=== PATIENT | female | born 1980 | race American Indian/Alaskan Native ===

== ENCOUNTER 2016-07-01 09:20 | Emergency (ER) | payer BC, MEDICAID ==
[2016-07-01] MEDS ORDERED: Sodium Chloride 0.9% 1,000 ML IV ONE (09:38)
[2016-07-01] MEDS ORDERED: Sodium Chloride 0.9% 1,000 ML ONE (09:52)
[2016-07-01 10:01] LABS: BASO # 0.1 K/uL (0.0-0.2); BASO % 0.9 % (0.0-2.0); EOS # 0.1 K/uL (0.0-0.7); EOS % 0.8 % (0.0-4.0); HEMATOCRIT 31.3 % (34.0-47.0); LYMPH # 1.5 K/uL (1.0-4.3); LYMPH % 17.5 % (20.0-40.0); MEAN CELL VOLUME 90.4 fL (81.0-99.0); MEAN CORPUSCULAR HEMOGLOBIN 30.1 pg (27.0-31.0); MEAN CORPUSCULAR HGB CONC 33.3 g/dL (33.0-37.0); MEAN PLATELET VOLUME 9.1 fL (7.2-11.7); MONO % 11.5 % (0.0-10.0); RED CELL DISTRIBUTION WIDTH 14.8 % (11.5-14.5); WHITE BLOOD COUNT 8.4 K/uL (4.8-10.8)
--- NOTE | 2016-07-01 10:01 | C.PDOC ---
History Of Present Illness 35 y/o female with 29 week gestation presents to ED with complaints of syncope episode. Patient states she was dropping off son at school, and "passed out". pt states she was standing when syncopal episode occurred. Patient baseline previously feeling well. Patient denies leakage of fluid, vaginal bleed , headache or dizziness. pt reports "only ate a bowl of cereal this morning" No other complaints at this time. Time Seen by Provider: 07/01/16 09:24 Chief Complaint (Nursing): Syncope History Per: Patient History/Exam Limitations: no limitations Onset/Duration Of Symptoms: Hrs Activity At Onset Of Symptoms: Walking Past Medical History Reviewed: Historical Data, Nursing Documentation, Vital Signs Vital Signs: Last Vital Signs Temp 98.2 F 07/01/16 10:09 Pulse 82 07/01/16 10:09 Resp 18 07/01/16 10:09 BP 113/71 07/01/16 10:09 Pulse Ox 99 07/01/16 10:41 - Medical History PMH: Anemia Family History: States: Unknown Family Hx - Social History Hx Alcohol Use: No Hx Substance Use: No - Immunization History Hx Influenza Vaccination: No Review Of Systems Except As Marked, All Systems Reviewed And Found Negative. Constitutional: Negative for: Fever, Chills, Weakness Respiratory: Negative for: Shortness of Breath Gastrointestinal: Negative for: Nausea, Vomiting, Diarrhea Genitourinary: Negative for: Dysuria, Vaginal Discharge, Vaginal Bleeding Skin: Negative for: Bruising Neurological: Negative for: Headache, Dizziness Physical Exam - Physical Exam Appears: Non-toxic, No Acute Distress Skin: Normal Color, Warm Head: Atraumatic, Normacephalic Oral Mucosa: Moist Cardiovascular: Rhythm Regular Respiratory: Normal Breath Sounds, No Rales, No Rhonchi, No Wheezing Gastrointestinal/Abdominal: Normal Exam Extremity: Normal ROM Neurological/Psych: Oriented x3, Normal Speech, Normal Cognition Gait: Steady ED Course And Treatment - Laboratory Results Result Diagrams: 07/01/16 09:56 07/01/16 09:56 ECG Interpretation: Normal Rate From EC O2 Sat by Pulse Oximetry: 99 (room air ) Medical Decision Making Medical Decision Making: syncopal episode. consider dehydration, metabolic, infectious. pt neuro intact. no guzman. low suspicion for intracranial pathology. pt declines ct/cxr imaging, and is asymptomatic at this time 1019: pt reasssed. no complaints. abd soft. no ttp. neuro intact. case discussed with dr campos. will sent pt for tocographic monitoring. pt smiling in nad. states she feels well to go home. [place] syncope rules neg. Disposition - Disposition Disposition: HOME/ ROUTINE Disposition Time: 10:47 Condition: STABLE Additional Instructions: please follow up with your doctor. return to er with worsening symptoms or concerns. Instructions: Syncope (ED) - Clinical Impression Clinical Impression: Syncope - PA / RANCH SUPERVISOR / Resident Statement MD/DO has reviewed & agrees with the documentation as recorded. MD/DO has examined the patient and agrees with the treatment plan. - Scribe Statement The provider has reviewed the documentation as recorded by the Giseleibalexander Gaspar All medical record entries made by the Ritchie were at my direction and personally dictated by me. I have reviewed the chart and agree that the record accurately reflects my personal performance of the history, physical exam, medical decision making, and the department course for this patient. I have also personally directed, reviewed, and agree with the discharge instructions and disposition.
[2016-07-01 10:08] LABS: CHLORIDE 102 mmol/L (98-107); POTASSIUM 3.7 mmol/L (3.6-5.2); SODIUM 134 mmol/L (132-148)
[2016-07-01 10:10] LABS: BILIRUBIN,TOTAL 0.4 mg/dL (0.2-1.3); GFR AFRICAN-AMERICAN > 60
[2016-07-01 10:11] LABS: ALKALINE PHOSPHATASE 51 U/L (38-126); ALT/SGPT 27 U/L (9-52); AST/SGOT 21 U/L (14-36); BLOOD UREA NITROGEN 5 mg/dL (7-17); CALCIUM 9.1 mg/dl (8.6-10.4); CARBON DIOXIDE 24 mmol/L (22-30); GLUCOSE,RANDOM 90 mg/dL (65-105); TOTAL PROTEIN 6.5 g/dL (6.3-8.3)
[2016-07-01 10:41] LABS: RBC URINE < 1 /hpf (0-3); URINE BACTERIA RARE (<OCC); URINE BILIRUBIN NEGATIVE (NEGATIVE); URINE BLOOD NEGATIVE (NEGATIVE); URINE COLOR Yellow (YELLOW); URINE GLUCOSE (UA) NORMAL (Normal); URINE KETONE NEGATIVE (NEGATIVE); URINE LEUKOCYTE ESTERASE NEG Leu/uL (Negative); URINE PROTEIN NEGATIVE (NEGATIVE); URINE UROBILINOGEN NORMAL mg/dL (0.2-1.0); WBC URINE 1 /hpf (0-5)
[2016-07-01 11:17] VITALS: BP 111/74; PULSE 81; RESP 16; TEMP 97.9; O2SAT 98
--- NOTE | 2016-07-01 11:30 | US ---
OB , limited Indication: Trauma Comparison: None available Technique: Real-time ultrasound was performed through the pelvis. Findings: There is a single living fetus in cephalic presentation. Anterior placenta. The placenta is not previa. There are no adnexal masses or cysts evident. Cervix length measures approximately 4.0 cm. Measurements and calculations: Fetus has a composite sonographic age of 30 weeks 0 days. This calculation is based on the biparietal diameter, head circumference, abdominal circumference, and femur length. Estimated heart rate 158.8 beats per min. Impression: Single living fetus with a composite sonographic age of 30 weeks 0 days. Estimated heart rate 158.8 beats per min. The study was performed for the emergent evaluation of trauma, and the whole anatomic survey of the fetus was not performed. This should be performed on an outpatient elective basis as clinically warranted.
--- NOTE | 2016-07-01 15:26 | OBHP ---
Datetime: 07/01/2016 12:05 Admit Comment, IP Provider: 35 y.o. , LMP 12/10/15, JESSICA 09/17/16, per patient as per Dr. Ramesh casas, EGA 29w 5d for toco monitoring, S/P syncopal episode earlier this morning with negative E.D. eval uation (see separate note in [employer]). Reports while dropping off her son at school this morning whi le speaking with the security lead, "I turned around and hit the floor. When I woke up, I was on the floor and they had called the ambulance". Patient states called her prov OB, Dr. Luan Lugo. Den ies loss of urine or feces. Denies hitting her head; no headches or visual changes. (+) AFM; denies L OF, VB, Ctx. care: Dr. Luan Lugo; no issues to date. Next visit 07/04/16. P Ob: x 3, 1996, male, 38/39 weeks, 6lb 9oz; 2001, female, 32 weeks, 5lb 5oz - in NICU x 2 wee ks; 2008, male, 34 weeks, 5lb 5oz; no NICU stay. All alive and well. VTOP x 2 age 14 and 2003, first trimestre, with D_C; no complications P SOCIAL MEDIA STRATEGIST: 9 x monthly x 7. Denies STI or abnormal Pap PMH: denies PSH: D_C x 2; 2009, Lap band (lost 40 lb) NKDA Meds: PNV Soc Hx: denies tobacco, illicit drug or ETOH use. Lives with her children and current FOB; togethe r x 2 years. Works as medical coordinator pesticide use FamHx: Mother alive 75, HTH, DM. Father 05/31/16 age 84 - cerebral hemorrhage; h/o Alzheim er's. No knonw fam h/o cancer P.E.: as above. WD in NAD. Awake, alert, oriented to time, person and place. Pleasant and cooperat luis. Hungry Assessment: 35 yo [id number], 29w 5d, S/P syncopal with negative work up. deceleration noted as a elizabeth (just after speaking with Dr. Lugo. Laboratory data and ob ultrasound report reviewed by me: no mane for anemia (Hgb 10.5); Ultrasound AGA 30w 0d; normal placenta - no mention made of fluid. Plan 1) continue monitoring for an additional 30 min 2) Anticipate discharge home 3) reveiwed S/S PTL 4) Keep appointment for 07/04/16 - as per and discussed with, Dr. Lugo Addendum: 1315 hours - after eating sandwich and drinking apple juice, patient states feels very good. (+) AFM. - after 45 minutes additional monitoring, no recurrence of deceleration. Plan: 1) discharge home 2) Encouraged to drink half her weight in ounces of water daily 3) Encouraged to keep a small snack; piece of fruit in her purse 4) Keep scheduled appointments - as per Dr. Lugo Pelvic Type - PN: Not Done Extremities - PN: Normal Abdomen - PN: Normal Back - PN: Normal Breast - PN: Not Done Lungs - PN: Normal Heart - PN: Normal Thyroid - PN: Not Done Neurologic - PN: Normal HEENT - PN: Normal General - PN: Normal Comments, ACOG Physical Exam: Skin: warm, dry, intact Abdomen: gravid, soft, non tender Extremities: no calf tenderness All other systems reviewed and are negative. Gestation - Est Wks by US: 29w 5d FHR Category Provider Fetus A: Category I Genitourinary Exam: Normal DTRs - PN: Normal
--- NOTE | 2016-07-21 13:49 | CARD ---
APPROVED REPORT EKG Measurement Heart [id number] <Conclusion> Normal sinus rhythm Normal ECG
== END 2016-07-01 13:25 | disposition home or self-care (01) ==
LOC: C.ER 09:20 → C.EROB 09:20
DX: O26.893 Other specified pregnancy related conditions, third trimester (principal); R55 Syncope and collapse; O76 Abnormality in fetal heart rate and rhythm complicating labor and delivery; Z3A.29 29 weeks gestation of pregnancy
CPT/HCPCS: 76815; 80053; 81001; 82948; 84702; 84703; 85025; 85610; 85730; 86850; 86900; 99285; J7040

== ENCOUNTER 2016-08-26 18:29 | Emergency (ER) | payer BC, MEDICAID ==
[2016-08-26 18:52] VITALS: BMI 34.0
[2016-08-26 19:20] LABS: SQUAMOUS EPITHIAL 10 /hpf (0-5); URINE BACTERIA RARE (<OCC); URINE BILIRUBIN NEGATIVE (NEGATIVE); URINE BLOOD NEGATIVE (NEGATIVE); URINE CLARITY Hazy (Clear); URINE COLOR Yellow (YELLOW); URINE GLUCOSE (UA) NORMAL (Normal); URINE LEUKOCYTE ESTERASE NEG Leu/uL (Negative); URINE NITRATE NEGATIVE (NEGATIVE); URINE PROTEIN 1+ mg/dL (NEGATIVE)
--- NOTE | 2016-08-26 19:36 | OBDCSUM ---
Datetime: 08/26/2016 19:34 Discharged to, Provider: Home Follow up at, Provider: wednesday Follow up in weeks, Provider: dr pickard Discharge Comment, Provider: dc home labor ins given po hyration f/u in on Discharge Diagnosis Prov Other: 37 weks false labor
--- NOTE | 2016-08-26 19:36 | OBHP ---
Datetime: 08/26/2016 19:31 IP Adm Impression: Term, intrauterine ; No Active Labor IP Chief Complaint Other: back pain and increased frequency IP Admit Plan: Discharge home Admit Comment, IP Provider: at 37+weeks came wth c/o back pain and increased frequency from the morning, no ctxs, vb, lof,+fm.no dysuria. obhx 3 x pmh de med pnv all nkda psh de soch den ve ft/50/-3 ua neg a/p at 37=weeks r/o labor, r/o uti dc home labor ins given po hyration f/u in on mondauy Pelvic Type - PN: Adequate Extremities - PN: Normal Abdomen - PN: Normal Back - PN: Normal Breast - PN: Not Done Lungs - PN: Normal Heart - PN: Normal Thyroid - PN: Not Done Neurologic - PN: Normal HEENT - PN: Normal General - PN: Normal FHR - Baseline A Provider: 140 Contraction Comments Provider: irrg Comments, ACOG Physical Exam: gravid,non tender ext no edema,no calf ten Vital Signs Provider: Reviewed; Within Normal Limits NICHD Variability Prov Fetus A: Moderate 6-25bpm NICHD Accel Fetus A IP Provider: 15X15 FHR Category Provider Fetus A: Category I Dilatation, Provider: ft Effacement, Provider: 50 Station, Provider: -3 Genitourinary Exam: Normal DTRs - PN: Normal
== END 2016-08-26 19:52 | disposition home or self-care (01) ==
LOC: C.EROB 18:29
DX: O47.1 False labor at or after 37 completed weeks of gestation (principal); Z3A.37 37 weeks gestation of pregnancy

== ENCOUNTER 2016-08-28 20:04 | Inpatient (IN) | payer BC, MEDICAID ==
[2016-08-28] MEDS ORDERED: Lactated Ringer's 1,000 ML IV ONE (20:24)
--- NOTE | 2016-08-28 21:11 | OBADHP ---
Datetime: 08/28/2016 20:31 IP Chief Complaint Other: back pain IP Adm Impression Other: back pain Admit Comment, IP Provider: chief complaint-back pain HPI 35 y/o at 38 wga with c/o back pain since am;patient was seen for similar complaint 2 day s ago and discharged home.Patient denies nausea, vomiting, vaginal bleeding or loss of fluid course AMA; care with dr pickard PMH denies PSH Lap band obgyh hx ; nvdx3; Hx of delivery Social hx denies tobacco,alcohol or illicit drug use Exam see exam section FHT reactive; baseline 150s Tooc irregular ctx sve ft/50/-3 A/P 35 y/o at 38 wga with back pain.no active labor.patient admits to drinking very littel fl uid -iv fluids bolus -monitor closely 9.03 pm patient states that she is still having pain noted to have contracxtions now cervix soft now A/P 35 y/o at 38 wga in early labor and low back pain -admit -see orders -discussed with dr pickard Pelvic Type - PN: Adequate Extremities - PN: Normal Abdomen - PN: Normal Back - PN: Normal Lungs - PN: Normal Heart - PN: Normal Neurologic - PN: Normal General - PN: Normal Weight - Estimated: 3000 Presentation-Admit: Vertex Contraction Comments Provider: occ Gestation - Est Wks by US: 38.0 IP Hx Assessment: The History has been Reviewed and is Current Vital Signs Provider: Reviewed; Within Normal Limits IP Chief Complaint: Other FHR Category Provider Fetus A: Category I Dilatation, Provider: ft Effacement, Provider: 50 Station, Provider: -2 Genitourinary Exam: Normal DTRs - PN: Normal EGA AdmitDate IP: 38.0 IP Adm Impression: Term, intrauterine ; No Active Labor IP Admit Plan: Admit to unit Datetime: 08/26/2016 19:31 Breast - PN: Not Done Thyroid - PN: Not Done HEENT - PN: Normal FHR - Baseline A Provider: 140 Comments, ACOG Physical Exam: gravid,non tender ext no edema,no calf ten NICHD Variability Prov Fetus A: Moderate 6-25bpm NICHD Accel Fetus A IP Provider: [id number]
[2016-08-28 21:37] LABS: BASO % 0.5 % (0.0-2.0); EOS % 0.6 % (0.0-4.0); HEMOGLOBIN 11.4 g/dL (11.0-16.0); LYMPH # 1.9 K/uL (1.0-4.3); LYMPH % 25.2 % (20.0-40.0); MEAN CORPUSCULAR HEMOGLOBIN 30.5 pg (27.0-31.0); MEAN CORPUSCULAR HGB CONC 33.5 g/dL (33.0-37.0); MEAN PLATELET VOLUME 9.3 fL (7.2-11.7); MONO # 0.8 K/uL (0.0-0.8); MONO % 10.4 % (0.0-10.0); NEUT # 4.7 K/uL (1.8-7.0); NEUT % 63.3 % (50.0-75.0); NRBC % 0.1 % (0.0-2.0); RBC 3.73 Mil/uL (3.80-5.20); WHITE BLOOD COUNT 7.4 K/uL (4.8-10.8)
[2016-08-28 21:42] LABS: SQUAMOUS EPITHIAL 23 /hpf (0-5); URINE BACTERIA RARE (<OCC); URINE BILIRUBIN NEGATIVE (NEGATIVE); URINE BLOOD NEGATIVE (NEGATIVE); URINE CALCIUM OXALATE CRYSTALS OCC /hpf (<OCC); URINE CLARITY Hazy (Clear); URINE COLOR Yellow (YELLOW); URINE GLUCOSE (UA) NORMAL (Normal); URINE LEUKOCYTE ESTERASE TRACE Leu/uL (Negative); URINE NITRATE NEGATIVE (NEGATIVE); URINE PROTEIN 1+ mg/dL (NEGATIVE)
[2016-08-28 22:03] LABS: ALBUMIN 3.4 g/dL (3.5-5.0); ALT/SGPT 24 U/L (9-52); AST/SGOT 23 U/L (14-36); BLOOD UREA NITROGEN 9 mg/dL (7-17); CALCIUM 9.2 mg/dl (8.6-10.4); GFR AFRICAN-AMERICAN > 60; GFR NON-AFRICAN AMERICAN > 60
[2016-08-28 22:33] LABS: HEPATITIS B SURFACE AG NEGATIVE (NEGATIVE)
--- NOTE | 2016-08-29 08:41 | OBPN ---
Datetime: 08/29/2016 08:38 IP Procedures: Sterile Vag Exam IP Progress Plan: Cervical Ripening Contraction Comments Provider: occ FHR - Baseline A Provider: 130 IP Progress Note Comment: pt was examined at bed side ve 2/60/-2 cervidil placed as per dr pickard r/a/b disc Vital Signs Provider: Reviewed NICHD Accel Fetus A IP Provider: 15X15 FHR Category Provider Fetus A: Category I NICHD Variability Prov Fetus A: Moderate 6-25bpm Dilatation, Provider: 2 Effacement, Provider: 60 Station, Provider: -2 Datetime: 08/28/2016 20:31 Gestation - Est Wks by US: 38.0 Weight - Estimated: 3000 Presentation-Admit: Vertex
[2016-08-29] MEDS ORDERED: Oxytocin 30 UNIT 30 UNITS/500 ML BAG IV PRN (17:18)
[2016-08-29] MEDS ORDERED: Nalbuphine 20 mg/ml Inj (1 ml) IVP PRN (17:30)
[2016-08-29] MEDS ORDERED: Nalbuphine 20 mg/ml Inj (1 ml) ONE (17:44)
[2016-08-29] MEDS ORDERED: Oxytocin 30 UNIT 30 UNITS/500 ML BAG IV ONE (18:02)
[2016-08-29] MEDS ORDERED: Oxycodone/Acetaminophen 5/325 mg Tab PO PRN (18:36)
[2016-08-29] MEDS ORDERED: Benzocaine/Menthol 20%-0.5% Topical Spray (60 ml) TOP PRN (18:36)
--- NOTE | 2016-08-29 18:40 | OBPN ---
Datetime: 08/29/2016 18:38 IP Progress Impression: Normal progression of labor IP Procedures: Sterile Vag Exam FHR - Baseline A Provider: 130 IP Progress Note Comment: pt was seen at bed side ve 790/-[address] pickard aware NICHD Variability Prov Fetus A: Moderate 6-25bpm Dilatation, Provider: 7 Effacement, Provider: 90 Station, Provider: -1 NICHD Decel Fetus A IP Provider: Variable
[2016-08-29] MEDS ORDERED: Oxytocin 30 UNIT 30 UNITS/500 ML BAG IV SCH (18:45)
--- NOTE | 2016-08-29 19:25 | OBDS ---
DELIVERY PERSONNEL Delivery Doctor: Lugo, K. MD Laundry Agent: Alejandrina, Nadira RN MATERNAL INFORMATION Estimated Blood Loss (ml): 300 Maternal Complications: None Provider Comments: Patient had No laceration LABOR SUMMARY EDC: 09/11/2016 00:00 No. Babies in Womb: 1 Attempted: No LABOR INFORMATION Cervical Ripening Agents: cervidil out MEMBRANES Membranes Rupture Method: Artificial Amniotic Fluid Color: Clear Amniotic Fluid Amount: Small STAGES OF LABOR Stage 3 hrs: 0 Stage 3 min: 4 BABY A INFORMATION Infant Delivery Date/Time: 08/29/2016 19:01 Method of Delivery: Vaginal Born in Route : No : N/A Forceps: N/A Vacuum Extraction: N/A Shoulder Dystocia : No SHOULDER DYSTOCIA BABY A Infant Delivery Date/Time: 08/29/2016 19:01 PRESENTATION/POSITION BABY A Presentation: Cephalic Cephalic Presentation: Vertex Vertex Position: Left Occipital Anterior Breech Presentation: N/A PLACENTA INFORMATION BABY A Placenta Delivery Time : 08/29/2016 19:05 Placenta Method of Delivery: Spontaneous Placenta Status: Delivered SCORES BABY A Heart Rate 1 min: >100 bpm Resp Effort 1 min: Good Cry Reflex Irritability 1 min: Cough or Sneeze or Pulls Away Muscle Tone 1 min: Active Motion Color 1 min: Body [place], Extremities Blue Resuscitation Effort 1 min: Tactile Stimulation SCORE 1 MIN: 9 Heart Rate 5 min: >100 bpm Resp Effort 5 min: Good Cry Reflex Irritability 5 min: Cough or Sneeze or Pulls Away Muscle Tone 5 min: Active Motion Color 5 min: Body [place], Extremities Blue SCORE 5 MIN: 9 INFANT INFORMATION BABY A Gestational Age at Delivery: 38.1 Gestational Status: Term Outcome : Liveborn Infant Condition : Stable Infant Sex: Female IDENTIFICATION/MEDS BABY A ID Band Number: [id number] ID Band Location: Left Leg; Left Arm Sensor Applied: Yes Sensor Number: [id number] Sensor Location : Cord Clamp Vitamin K Given : Aquamephyton 1 mg IM; Left Thigh Erythromycin Given: Given Both Eyes WEIGHT/LENGTH BABY A Birthweight (gms): 3120 Infant Weight (lb): 6 Infant Weight (oz): 14 Infant Length Inches: 19.00 Infant Length cms: 48.3 CORD INFORMATION BABY A No. Cord Vessels: 3 Nuchal Cord : N/A Cord Blood Taken: Yes Infant Suction: None; Mouth ASSESSMENT BABY A Infant Complications: None Physical Findings at Delivery: Within Normal Limits Infant Respirations: Appears Normal Cna/ALS Called : No Infant Care By: SIMONE PULIDO Transferred To: Nursery
--- NOTE | 2016-08-30 08:30 | OBPPN ---
Datetime: 08/30/2016 08:26 PP Pain Prov: Within normal limits PP Nausea Prov: Denies PP Flatus Prov: Yes PP Abdomen/Uterus Prov: Normal PP Lochia Prov: Normal PP Extremities Prov: Normal PP Comments Phys Exam Prov: fudus below umblicus ext no edma,no calf ten PP Impression Prov: Normal progression PP Plan Prov: Continue present management PP Progress Note Prov: pt was seen at bed side, pain under control, no n/v, tolertaing deit, voiding ,min lochia, flatus+ ppd#1 cbc cont pp care cont pain management Vital Signs Provider PP: Reviewed; Within Normal Limits
[2016-08-30 08:44] LABS: HEMOGLOBIN 10.7 g/dL (11.0-16.0); MEAN CELL VOLUME 91.8 fL (81.0-99.0); MEAN CORPUSCULAR HEMOGLOBIN 30.8 pg (27.0-31.0); MEAN CORPUSCULAR HGB CONC 33.6 g/dL (33.0-37.0); MEAN PLATELET VOLUME 8.7 fL (7.2-11.7); RBC 3.48 Mil/uL (3.80-5.20); RED CELL DISTRIBUTION WIDTH 15.8 % (11.5-14.5); WHITE BLOOD COUNT 9.1 K/uL (4.8-10.8)
--- NOTE | 2016-08-30 17:23 | OBPPN ---
Datetime: 08/30/2016 17:20 PP Breasts Prov: Normal PP Heart Prov: Normal PP Lungs Prov: Normal PP Abdomen/Uterus Prov: Normal PP Lochia Prov: Normal PP Vulva/Perineum Prov: Normal PP CVA Tenderness Prov: Normal PP Extremities Prov: Normal PP Comments Phys Exam Prov: No C/O PP Impression Prov: Normal progression PP Plan Prov: Continue present management PP Progress Note Prov: P: Home in AM if stable IP PP Procedures: None
--- NOTE | 2016-08-30 17:25 | OBDCSUM ---
Datetime: 08/30/2016 17:23 Follow up at, Provider: Dr. Lugo Disch Instr Activity: May Shower Disch Instr Diet: Regular Discharge Instructions, Provider: Routine instructions given Discharge Diagnosis, Provider: Term Delivered Discharge Time: 08/31/2016 10:10 Follow up in weeks, Provider: RT in 4 weeks Disch Referrals: None Contraception after Delivery: Not Planning to Use
[2016-08-31 00:34] VITALS: BP 103/64; PULSE 99; RESP 20; TEMP 97.5; O2SAT 97
== END 2016-08-31 15:30 | disposition home or self-care (01) | DRG 775 ==
LOC: C.EROB 20:04 → C.4D 21:05 → C.4M 08-29 21:09
PROVIDERS: ADMIT Obstetrics & Gynecology; ATTEND Obstetrics & Gynecology
PROC: 10E0XZZ Delivery of Products of Conception, External Approach (ICD-10-PCS; principal; 2016-08-29)
PROC: 3E0P7GC Introduction of Other Therapeutic Substance into Female Reproductive, Via Natural or Artificial Opening (ICD-10-PCS; 2016-08-29)
PROC: 10907ZC Drainage of Amniotic Fluid, Therapeutic from Products of Conception, Via Natural or Artificial Opening (ICD-10-PCS; 2016-08-29)
DX: O26.893 Other specified pregnancy related conditions, third trimester (principal); Z37.0 Single live birth; Z98.84 Bariatric surgery status; Z3A.38 38 weeks gestation of pregnancy